=== PATIENT | female | born 1975 | race Caucasian/White ===

== ENCOUNTER 2016-11-27 17:02 | Emergency (ER) | payer SELFPAY ==
[~2016-11-27] VITALS: Ht 160 cm; Wt 127.0 kg
[2016-11-27] MEDS ORDERED: LEVO150T6 PO (17:14)
[2016-11-27] MEDS ORDERED: DUONEB 0.5 MG-3 MG/3 ML SOLN IH STA (17:22)
--- NOTE | 2016-11-27 17:26 | ER.PDOC ---
General Chief Complaint: Cough/Congestion Stated Complaint: COUGH AND CONGESTION Time seen by MD: 17:24 History of Present Illness Initial Comments cough, congestion, wheezing for 2 days. otc meds without relief. Severity: moderate Activities at Onset: none Prior Episodes/Possible Cause: no prior episodes Associated Symptoms: denies symptoms Prior symptoms/Treatment: No Recenly Seen Allergies: Uncoded Allergies: pencillin (Allergy, Unknown, 08/14/16) rash Home Meds Reported Medications Levothyroxine Sodium 150 Mcg Tablet1 Tab PO DAILY #90 TAB Ref 3 11/27/16 Past Medical History Medical History: no pertinent history Surgical History: no surgical history LMP (females 10-50): 11/23/15 Social History Smoking: cigarettes, less than 1 pack/day Alcohol Use: none Drug Use: none Review of Systems Constitutional: no symptoms reported EENTM: no symptoms reported Respiratory: no symptoms reported Cardiovascular: no symptoms reported Gastrointestinal: no symptoms reported Genitourinary: no symptoms reported Musculoskeletal: no symptoms reported Skin: no symptoms reported Psychiatric/Neurological: no symptoms reported Endocrine: no symptoms reported Physical Exam General Appearance: No Apparent Distress, WD/WN HEENT: PERRL/EOMI Neck: Non-Tender, Full Range of Motion Respiratory: chest non-tender, prolonged expirations, wheezing (bilat) Cardiovascular: Normal Peripheral Pulses, Regular Rate, Rhythm Gastrointestinal: Normal Bowel Sounds, Non Tender, Soft Rectal: Normal Exam Extremities: Normal Range of Motion, Non-Tender Neurologic/Psychiatric: No Motor/Sensory Deficits Skin: Normal Color, Warm/Dry Results/Orders Results/Orders Administered Medications Medications (Trade) Dose Ordered Sig/Elaine Route PRN Reason Start Time Stop Time Status Last Admin Dose Admin Albuterol/ Ipratropium (Duoneb 0.5 Mg-3 Mg/3 ml Soln) 3 ml STAT STAT IH 11/27/16 17:22 11/27/16 17:24 DC 11/27/16 17:34 Prednisone (Prednisone) 60 mg STAT STAT PO 11/27/16 18:05 11/27/16 18:06 DC 11/27/16 18:21 Progress Progress much improved with treatment. Departure Time of Disposition: 18:41 Disposition: 01 HOME, SELF-CARE Impression: Primary Impression: Acute bronchitis Condition: Improved Referrals: PCP,UNKNOWN (PCP) PRIMARY CARE PROVIDER CARSON BAKER MD Nov 27, 2016 17:26
[2016-11-27] MEDS ORDERED: DUONEB 0.5 MG-3 MG/3 ML SOLN IH ONE (17:30)
--- NOTE | 2016-11-27 17:52 | DIREP ---
PROCEDURE:CHEST 2 VIEWS COMPARISON:None. INDICATIONS:cough FINDINGS: LUNGS/PLEURA:No significant pulmonary parenchymal abnormalities. No effusions or pneumothorax. VASCULATURE:Normal. Unremarkable pulmonary vasculature. CARDIAC:Normal. No cardiac silhouette abnormality or cardiomegaly. MEDIASTINUM:Normal. No visible mass or adenopathy. BONES:Normal. No fracture or visible bony lesion. OTHER:Negative. CONCLUSION: No active cardiopulmonary processes. Dictated by: Levon Hooks M.D. On 11/27/2016 at 05:51 PM
[2016-11-27] MEDS ORDERED: PREDNISONE PO STA (18:05)
[2016-11-27] MEDS ORDERED: PREDNISONE ONE (18:20)
[2016-11-27 18:57] VITALS: BP 156/80
== END 2016-11-27 18:54 | disposition home or self-care (01) ==
LOC: ER 17:02 → SUATTDRO 17:20 → ER 18:54
PROVIDERS: ATTEND Emergency Medicine
DX: J20.9 Acute bronchitis, unspecified (principal); F17.210 Nicotine dependence, cigarettes, uncomplicated; Z88.0 Allergy status to penicillin
CPT/HCPCS: 71020; 94640; 99284; J7512; J7620

== ENCOUNTER 2018-03-23 19:43 | Emergency (ER) | payer OTHER ==
[~2018-03-23] VITALS: Ht 160 cm; Wt 129.7 kg
[~2018-03-23 19:43] MED LIST: LEVO150T6 PO
[2018-03-23 19:59] VITALS: BP 132/72
--- NOTE | 2018-03-23 20:13 | ER.PDOC ---
General Chief Complaint: Headache Stated Complaint: LOST VOICE AND FEVER Time seen by MD: 20:02 Source: patient Exam Limitations: no limitations History of Present Illness Initial Comments Onset 3 days ago. Hoarse. No fever. Severity: mild Allergies: Uncoded Allergies: pencillin (Allergy, Unknown, 08/14/16) rash Home Meds Reported Medications Levothyroxine Sodium (LEVOTHYROXINE SODIUM) 150 Mcg Tablet, 1 TAB PO DAILY, #90 TAB 3 Refills 11/27/16 Past Medical History Medical History: GERD, thyroid disease Surgical History: no surgical history LMP (females 10-50): last week Social History Smoking: non-smoker Alcohol Use: none Drug Use: none Reviewed Nursing Reviewed: Vital Signs, Abn. Noted, Nursing Assessment Constitutional: no symptoms reported Eyes: no symptoms reported Ears: no symptoms reported Nose: no symptoms reported Mouth: no symptoms reported Throat: see HPI All Other Systems: Reviewed and Negative Physical Exam General Appearance: alert, no distress Head/Neck: head nml inspection, neck nml inspection, trachea midline, no lymphadenopathy Eyes: eyes nml inspection, PERRL Mouth: lips, gums nml, no drooling, no thrush Throat: pharynx nml, no airway problems Ears/Nose: nml inspection Respiratory: no resp. distress, lungs clear CVS: reg. rate & rhythm, heart sounds nml Departure Time of Disposition: 20:11 Disposition: 01 HOME, SELF-CARE Impression: Primary Impression: Viral URI Condition: Stable Patient Instructions: Viral Syndrome Referrals: PCP,UNKNOWN (PCP) PRIMARY CARE PROVIDER Additional Instructions: Throat lozenges, Tylenol or ibuprofen. Duration or Time Spent with Pa: 15 CHRISTIE LANCASTER DO March 23, 2018 20:13
[2018-03-23 20:31] VITALS: BP 132/72
== END 2018-03-23 20:20 | disposition home or self-care (01) ==
LOC: ER 19:43
DX: J06.9 Acute upper respiratory infection, unspecified (principal); E07.9 Disorder of thyroid, unspecified; K21.9 Gastro-esophageal reflux disease without esophagitis; Z88.0 Allergy status to penicillin
CPT/HCPCS: 99281